=== PATIENT | male | born 2000 | race Caucasian/White ===

== ENCOUNTER 2019-05-13 14:40 | Inpatient (IN) | payer OTHER ==
[~2019-05-13] VITALS: Ht 177.8 cm; Wt 72.2 kg
[2019-05-13 16:49] LABS: HEMATOCRIT 46.2 % (42.0-52.0); HEMOGLOBIN 15.2 g/dl (13.5-17.5); MEAN CORPUSCULAR HEMOGLOBIN 29.7 pg (27.0-33.0); MEAN CORPUSCULAR HGB CONC 32.9 g/dl (32.0-36.5); MEAN CORPUSCULAR VOLUME 90.4 fl (80.0-96.0); PLATELET COUNT, AUTOMATED 195 10^3/uL (150-450); RED BLOOD COUNT 5.11 10^6/uL (4.30-6.10); WHITE BLOOD COUNT 5.8 10^3/uL (4.0-10.0)
[2019-05-13 17:21] LABS: AMPHETAMINES LEVEL URINE NEGATIVE (NEGATIVE); BARBITURATES URINE NEGATIVE (NEGATIVE); BENZODIAZEPINES URINE NEGATIVE (NEGATIVE); CANNABINOIDS URINE NEGATIVE (NEGATIVE); COCAINE METABOLITE URINE NEGATIVE (NEGATIVE); METHADONE URINE NEGATIVE (NEGATIVE); OPIATES URINE NEGATIVE (NEGATIVE); PHENCYCLIDINE URINE NEGATIVE (NEGATIVE)
[2019-05-13 17:26] LABS: ACETAMINOPHEN LEVEL < 2.0 UG/ML (10.0-30.0); ALBUMIN 4.7 GM/DL (3.2-5.2); ALT/SGPT 26 U/L (12-78); BILIRUBIN,DIRECT 0.2 MG/DL (0.0-0.2); BILIRUBIN,TOTAL 0.7 MG/DL (0.2-1.0); BLOOD UREA NITROGEN 14 MG/DL (7-18); CALCIUM LEVEL 9.1 MG/DL (8.5-10.1); CARBON DIOXIDE LEVEL 27 MEQ/L (21-32); CHLORIDE LEVEL 109 MEQ/L (98-107); CREATININE FOR GFR 1.16 MG/DL (0.70-1.30); ETHYL ALCOHOL (ETHANOL) < 0.003 % (0.000-0.010); GLOMERULAR FILTRATION RATE > 60.0 (>60); GLUCOSE, FASTING 83 MG/DL (70-100); SALICYLATE LEVEL < 1.7 MG/DL (5.0-30.0); SODIUM LEVEL 141 MEQ/L (136-145); TOTAL PROTEIN 7.3 GM/DL (6.4-8.2)
[2019-05-13] MEDS ORDERED: ACETAMINOPHEN TAB 650MG DOSE (2X325MG) PO PRN (18:45)
[2019-05-13] MEDS ORDERED: MAALOX 30 ML SUSP *UDC PO PRN (18:45)
[2019-05-13] MEDS ORDERED: MOM 30ML SUSPENSION UDC PO PRN (18:45)
[2019-05-13] MEDS ORDERED: traZODone 50 MG TAB PO PRN (18:45)
[2019-05-13 20:09] VITALS: BP 107/60
[2019-05-14 06:05] VITALS: BP 118/74
--- NOTE | 2019-05-14 10:51 | MHHPEPDOC ---
General Date Of Admission: May 13, 2019 Legal Status: 9.39 Chief Complaint "I got in an argument with my coworkers." History of Present Illness HISTORY OF THE PRESENT ILLNESS: Patient is a 19 -year-old , AD, male, with no previous psych history who was brought to ED by HAYDEE's after he was seen at [facility] for attempting to kill himself over the weekend after drinking with friends by placing a plastic bag over his head due to feeling depressed. 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 Pt continued to endorse the desire to in the ED when seen b/c he can't suppress her anger. Pt was seen by his Demetrice prior to coming to the ED to talk about what he did over the weekend and told them that he wanted to bang his head against a wall until he bled to . He endorsed poor self image that it "sucks." Per [facility] records pt endorsed cutting his had recently to release anger and his friends have reported to Demetrice that pt has been asking about the best was to OD. Psychiatric Review of Systems Depression (2 or more weeks): depressed mood, feelings of worthlesness, difficulty concentrating, suicidal thoughts Mary (4 or more days of): denies Psychosis: denies PTSD: denies Anxiety: situational anxiety, stressor related anxiety Anxiety/ 6 months or more of: restlessness, keyed up, difficulty concentrating, irritability Past Psychiatric History Previous Psychiatric Diagnosis: denies Previous Psychiatric Admissions: denies Suicide Attempts: recent cutting hand to release anger per [facility] records Psychiatric Follow-up: denies Psychiatric medications:denies Past Medical History Medical Problems health adult Head Injury: No Seizures: No Hospitalizations: No Surgeries: No Family Medical/Psychiatric HX Medical Problems denies Psychiatric Disorders: No Addiction: No Suicide Attemps/Completions: No Addiction History nicotine, alcohol (rarely but did drink with friend over the weekend), denies (utox neg) Social History Childhood: born and raised in [place], parents when he was 6 which he admits was difficult for him, has a older sister, ok childhood Abuse/Trauma:denies [facility] Education: high school grad Employment: [employer] since he was 15, E4 Social Support: family Legal: denies Marital: single, never , no kids Mental Status Examination General Appearance: well groomed, appears stated age, hospital scubs/clothing Build: average Demeanor: average, guarded Eye Contact: fair Activity: average, anxious Behavior: cooperative, other (unreliable as he is not discussing recent SA only wanting to bang his head due to anger with his Demetrice) Speech: clear, spontaneous, reg/rate,rhythm,volume Mood: depressed, anxious Mood "better" Affect: full, anxious Thought Process: logical/linear, depressed, intact Thought Content (Delusions): none reported, denies SI, HI, AVH (although was endorsing SI last night in ED and with [facility] yesterday when seen there per records; not very reliable regarding his thoughts for SI and would consider pt as having on going SI) Thought Content (Other): none reported, appropriate Thought Content (Aggressive): none reported Perception (Hallucinations): none reported Perception (Other): none reported Cognition (Impairment of): none reported Cognition(Intelligence Est.): average Oriented: Awake, Alert, Oriented times three Insight: poor Judgment: Poor Psychosis: Denies Diagnoses Adjustment d/o with depression and anxiety recent alcohol abuse A-FIB/CHADSVASC A-FIB History Current/History of A-Fib/PAF?: No Assessment Pt seen today and states he's here b/c he got in an argument with his coworksers which caused him to want to bang his head against the wall. He did not mention or discuss his recent SA by placing a bag over his head to suffocate himself over the weekend and is not the most reliable source regarding his reasons for admission. Does endorse feels of anger that he's having difficulty coping with that cause him to react and ay stuff he doesn't mean out of anger. Denies he's suicidal today but due to his neglect to mention resent SA and documentation of cutting and asking friends about the best ways to OD per [facility] records would not consider his denial of SI today as reliable. Asked pt if he felt he needed to start an antidepressant to help him and he said no as he preferred to try outpatient therapy to aid his anger first. Pt advised he must attend all the groups on the unit as part of his treatment which he states he'll do. He denies HI, hallucinations, delusions. Feels safe here. Initial Treatment Plan 1. Patient was admitted on a 9.39 status. 2. Complete history was obtained. 3. With patients permission, family will be contacted and database will be expanded. 4. Patients medication regimen will be reviewed and changed accordingly. 5. Patient will be provided with protected environment. 6. Patient will be treated with individual, group, and milieu therapies. 7. Patient will receive supportive psych-education. 8. Discharge planning will commence immediately. 9. Outpatient follow-up treatment will be strongly recommended. 10. The initial treatment plan will focus initially on: * Depression. * Risk for suicide. 11. monitor safety ESTIMATED LENGTH OF STAY: 5-7 DAYS. TIME SPENT COUNSELING AND COORDINATING INITIAL CARE: 60 minutes. Vital Signs Vital Signs Date Time Temp Pulse Resp B/P (MAP) Pulse Ox O2 Delivery O2 Flow Rate FiO2 05/14/19 06:05 97.9 63 14 118/74 (89) 05/13/19 20:09 97 Room Air Laboratory Data 24H Labs Laboratory Tests 2 05/13/19 16:35: Nucleated Red Blood Cells % (auto) 0.0, Anion Gap 5L, Glomerular Filtration Rate > 60.0, Calcium Level 9.1, Total Bilirubin 0.7, Direct Bilirubin 0.2, Aspartate Amino Transf (AST/SGOT) 28, Alanine Aminotransferase (ALT/SGPT) 26, Alkaline Phosphatase 90, Total Protein 7.3, Albumin 4.7, Albumin/Globulin Ratio 1.81, Thyroid Stimulating Hormone (TSH) 1.920, Salicylates Level < 1.7L, Urine Opiates Screen NEGATIVE, Urine Methadone Screen NEGATIVE, Acetaminophen Level < 2.0L, Urine Barbiturates Screen NEGATIVE, Urine Phencyclidine Screen NEGATIVE, Urine Amphetamines Screen NEGATIVE, Urine Benzodiazepines Screen NEGATIVE, Urine Cocaine Metabolite Screen NEGATIVE, Urine Cannabinoids Screen NEGATIVE, Ethyl Alcohol Level < 0.003 CBC/BMP Laboratory Tests 05/13/19 16:35 Medications No Active Prescriptions or Reported Meds Allergies Coded Allergies: No Known Allergies (Unverified , 05/13/19) KACI PICKERING DO May 14, 2019 10:51
[2019-05-14 17:11] VITALS: BP 122/64
[2019-05-15 05:57] VITALS: BP 122/71
--- NOTE | 2019-05-15 08:21 | MHDSPDOC ---
[facility] Discharge Summary Discharge Summary DATE OF ADMISSION: May 13, 2019 at 18:42 DATE OF DISCHARGE: 05/15/19 Discharge Anthony Castro MRN: N/A Date of : N/A Date of Service: 05/15/2019 Diagnoses Adjustment disorder. Narcissistic personality features. 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 He is brought in after he had reportedly been given critique about his poor handling of the soldiers where he reportedly stated about the gesture earlier in the week where he was brought in and admitted after an abundance of caution. Consultants Involved Hospitalist/PCP screening Treatment and Progress On The Unit The patient was admitted to the inpatient unit where initially he had been seen by Dr. Mace. No medications were recommended as the patient declined them. He was observed over 48 hours at which time he did not meet involuntary criteria in my opinion to be extended further. He denied suicidal or homicidal ideation throughout the time. He demonstrated fair insight into the situation that brought him in. He had no major behavioral controls. He remained in behavioral control and had a normal mental status on discharge, thus in my opinion he does not meet criteria for involuntary extension of his admission over the weekend. He declines voluntary and must be discharged to [facility]. 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 Mental Status Examination General: Well dressed with good hygiene Speech: Spontaneous and fluid Thought processes: Linear and logical MSK: Smooth and coordinated gait, no signs of tremors or involuntary orofacial movements Thought content: Future orientated Abstract reasoning, and computation: Intact Description of associations: Intact Description of abnormal or psychotic thoughts: Denies any suicidal or homicidal ideation. Denies any auditory or visual hallucinations. Does not appear to be responding to internal stimuli. Does not appear to be endorsing any bizarre or paranoid ideation. Judgment: fair Insight: fair Orientation: Alert and orientated 3 Cognition: Grossly normal Recent and remote memory: Intact Attention span and concentration: Intact Fund of knowledge: Adequate Mood: "okay" Affect: Euthymic with a full range Follow Up The social work team worked during the predischarge meeting in order to evaluate for further issues of lethality address them fully before discharge. They worked on safety planning with the patient's family members in order to ensure that the patient will have a safe and effective discharge. Time Spent The amount of time spent in the coordination of care for this patient was approximately 40 minutes. Vital Signs/I&Os Vital Signs Date Time Temp Pulse Resp B/P (MAP) Pulse Ox O2 Delivery O2 Flow Rate FiO2 05/15/19 05:57 97.0 62 16 122/71 (88) 05/13/19 20:09 97 Room Air Medications No Active Prescriptions or Reported Meds Allergies Coded Allergies: No Known Allergies (Unverified , 05/13/19) MARIETTA MAGALLON DO May 15, 2019 08:21
--- NOTE | 2019-05-15 09:18 | HPE ---
DATE OF ADMISSION: 05/13/2019 REASON FOR CONSULTATION: Medical evaluation of inpatient psychiatric patient. 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 The patient denies any history of any medical illnesses. He has no medical complaints at this time. ALLERGIES: No known drug allergies. MEDICATIONS: Medication list has been reviewed by me and consists of: - trazodone 50 mg at bedtime - Mylanta/milk of magnesia - Tylenol as needed PAST MEDICAL HISTORY: None. PAST SURGICAL HISTORY None. SOCIAL HISTORY: The patient is originally from [place]. He says that he uses tobacco products. The patient drinks alcohol. FAMILY HISTORY: Notable for grandparents with diabetes. REVIEW OF SYSTEMS: 12-system reviewed with the patient and otherwise negative. PHYSICAL EXAMINATION: VITAL SIGNS: Temperature 98.6, pulse 67 and regular, respiratory rate 16, blood pressure 122/64, oxygen saturation 97% on room air. GENERAL: The patient is alert, oriented times three. Appears in no acute distress. He is resting comfortably. SKIN: Intact and warm to touch. HEAD: Atraumatic, normocephalic. ENT: Pupils are symmetric and reactive to light. Oropharynx is clear. Neck is supple. No palpable lymphadenopathy or thyroid goiter. No thyroid gland tenderness. LUNGS: Lung sounds are appreciated bilaterally without wheeze or rhonchi. HEART: S1, S2. No murmurs, rubs or gallops. ABDOMEN: Soft, nontender, nondistended with active bowel sounds. EXTREMITIES: Without any cyanosis, clubbing or edema. RELEVANT LABORATORIES: White count 5.8, hemoglobin 15, hematocrit 46, platelet count is 195. Sodium 141, potassium 4, chloride 109, bicarbonate 27, anion gap 5, BUN 14, creatinine 1.16, glucose 83, calcium 9.1, total bilirubin 0.7, AST 28, ALT 26, alkaline phosphatase 9, total protein 7.3, albumin 4.7, TSH 1.9. Urine drug screen was negative. Salicylate, acetaminophen, and alcohol level were all within normal range. IMPRESSION: 1. Normal adult male physical examination. 2. No acute medical problems. RECOMMENDATIONS: Thank you for allowing me to participate in the care of Mr. Castro. We will sign off at this time. Please continue with ongoing psychiatric treatment.
== END 2019-05-15 10:20 | disposition home or self-care (01) | DRG 882 ==
LOC: M ED 14:40 → M ED INP 18:42 → M PSY 19:57
PROVIDERS: ADMIT Psychiatry & Neurology Psychiatry; ATTEND Psychiatry & Neurology Addiction Medicine
DX: F43.20 Adjustment disorder, unspecified (principal); R45.851 Suicidal ideations; F60.81 Narcissistic personality disorder; Z79.899 Other long term (current) drug therapy; F17.200 Nicotine dependence, unspecified, uncomplicated